=== PATIENT | female | born 1980 | race Caucasian/White ===

== ENCOUNTER 2024-05-08 22:59 | Emergency (ER) | payer OTHER, SELFPAY ==
[2024-05-08 23:08] VITALS: BMI 36.0
[2024-05-08 23:11] VITALS: BP 164/98; PULSE 77; TEMP 36.9; O2SAT 97; BMI 36.0
--- NOTE | 2024-05-08 23:36 | ED_ITS ---
HPI - Dental/Oral General Chief complaint: Dental/Oral Stated complaint: R DENTAL PAIN Time Seen by Provider: 05/08/24 23:27 Source: patient Mode of arrival: walk-in Limitations: no limitations History of Present Illness HPI Narrative: presents complaining of right lower posterior dental pain for 3 days that is worsening. No fever or obvious swelling Teeth map: 2 1. tender Related Data Home Medications ?Medication ?Instructions ?Recorded ?Confirmed No Known Home Medications 05/08/24 05/08/24 Allergies Allergy/AdvReac Type Severity Reaction Status Date / Time No Known Drug Allergies Allergy Verified 05/08/24 23:08 Review of Systems 2 ROS0 Status of ROS 10 or more systems reviewed and unremark able except as noted in history and below PFSH PFSH Social History Little interest or pleasure in doing things: not at all Feeling down, depressed, or hopeless: not at all Exam Constitutional Vital Signs, click to edit/add: Last Vital Signs Temp 98.5 F 05/08/24 23:11 Pulse 77 05/08/24 23:11 Resp 17 05/08/24 23:11 BP 164/98 H 05/08/24 23:11 Pulse Ox 97 05/08/24 23:11 O2 Del Method Room Air 05/08/24 23:11 Common normals: no apparent distress, average body habitus, oriented x3, no limitations, healthy appearing, alert and well nourished [facility] Common normals: normocephalic and head/scalp atraumatic Throat image: 2 1. tender Other: tenderness right lower posterior area. No obvious tooth present. Patient states she can feel something sharp. site is tender Eye Common normals: EOMs intact bilaterally Respiratory Common normals: normal respiratory effort, no retractions, no use of accessory muscles and clear to auscultation bilaterally Cardio Common normals: regular rate, regular rhythm, S1 normal heart sound and S2 normal heart sound Extremity Common normals: normal to inspection and full ROM Neuro Common normals: oriented x3, CN's II-XII intact bilaterally, moves all extremities and no focal motor deficits Psych Appearance: grossly normal Course Vital Signs Vital signs: Vital Signs Temperature 98.5 F 05/08/24 23:11 Pulse Rate 77 05/08/24 23:11 Respiratory Rate 17 05/08/24 23:11 Blood Pressure 164/98 H 05/08/24 23:11 Pulse Oximetry 97 05/08/24 23:11 Oxygen Delivery Method Room Air 05/08/24 23:11 Temperature 98.5 F 05/08/24 23:11 Pulse Rate 77 05/08/24 23:11 Respiratory Rate 17 05/08/24 23:11 Blood Pressure 164/98 H 05/08/24 23:11 Pulse Oximetry 97 05/08/24 23:11 Oxygen Delivery Method Room Air 05/08/24 23:11 MDM - Dental/Oral MDM Narrative Medical decision making narrative: patient presents with dental pain. No obvious caries. Does have focal tenderness at site she would normally have right lower wisdom tooth. increasing pain for 3 days. plan course of augmentin and have her follow up with dentistry Discharge Plan Discharge Chief Complaint: Dental/Oral Clinical Impression: Dentalgia Patient Disposition: Home, Self-Care Prescriptions / Home Meds: No Action No Known Home Medications Print Language: Tajik Instructions: Toothache (ED) Additional Instructions: follow up with a local dentist Referrals: Brisa Jain NP [Primary Care Provider] - 1 week
[2024-05-08] MEDS: AMOXICILLIN/POT CLAV 875-125 MG TABLET 1 TAB PO (23:43)
== END 2024-05-08 23:56 | disposition home or self-care (01) ==
PROVIDERS: Emergency Provider Internal Medicine; PCP Nurse Practitioner Family
DX: K08.89 Other specified disorders of teeth and supporting structures (principal)
CPT/HCPCS: 99283